=== PATIENT | male | born 1980 | race Two or more races ===

== ENCOUNTER 2016-07-14 09:55 | Emergency (ER) | payer MEDICARE, MEDICAID ==
[~2016-07-14] VITALS: Ht 165.1 cm; Wt 74.8 kg
[2016-07-14 10:27] VITALS: BP 150/100
== END 2016-07-14 10:43 | disposition home or self-care (01) ==
LOC: ER 09:56
DX: M54.5 Low back pain (principal); G89.29 Other chronic pain; J45.909 Unspecified asthma, uncomplicated; F17.210 Nicotine dependence, cigarettes, uncomplicated; F12.10 Cannabis abuse, uncomplicated; W01.0XXA Fall on same level from slipping, tripping and stumbling without subsequent striking against object, initial encounter; Y93.9 Activity, unspecified; Y99.9 Unspecified external cause status; Y92.9 Unspecified place or not applicable; Z88.8 Allergy status to other drugs, medicaments and biological substances; Z76.0 Encounter for issue of repeat prescription

== ENCOUNTER 2016-08-08 12:00 | Emergency (ER) | payer MEDICARE, MEDICAID ==
[~2016-08-08] VITALS: Ht 165.1 cm; Wt 68.7 kg
[2016-08-08 12:30] VITALS: BP 138/93
== END 2016-08-08 14:15 | disposition left against medical advice (07) ==
LOC: ER 12:02
DX: R25.2 Cramp and spasm (principal); Z53.21 Procedure and treatment not carried out due to patient leaving prior to being seen by health care provider

== ENCOUNTER 2016-08-11 12:00 | Emergency (ER) | payer MEDICARE, MEDICAID ==
[~2016-08-11] VITALS: Ht 165.1 cm; Wt 68.5 kg
[2016-08-11 13:05] VITALS: BP 150/94
== END 2016-08-11 13:10 | disposition home or self-care (01) ==
LOC: ER 12:01
DX: G89.29 Other chronic pain (principal); M54.5 Low back pain; M62.838 Other muscle spasm; F17.210 Nicotine dependence, cigarettes, uncomplicated; F12.10 Cannabis abuse, uncomplicated; J45.909 Unspecified asthma, uncomplicated; Z88.8 Allergy status to other drugs, medicaments and biological substances

== ENCOUNTER 2016-09-04 13:06 | Emergency (ER) | payer MEDICARE, MEDICAID ==
[~2016-09-04] VITALS: Ht 165.1 cm; Wt 68.0 kg
[2016-09-04 13:06] VITALS: BP 151/95
== END 2016-09-04 15:15 | disposition left against medical advice (07) ==
LOC: ER 13:08
DX: R53.1 Weakness (principal); Z53.21 Procedure and treatment not carried out due to patient leaving prior to being seen by health care provider
CPT/HCPCS: 93005

== ENCOUNTER 2016-09-25 13:28 | Emergency (ER) | payer MEDICARE, MEDICAID ==
[~2016-09-25] VITALS: Ht 165.1 cm; Wt 70.3 kg
[2016-09-25 14:25] VITALS: BP 141/77
== END 2016-09-25 14:47 | disposition home or self-care (01) ==
LOC: ER 13:28
DX: G47.62 Sleep related leg cramps (principal); G89.4 Chronic pain syndrome; R51 Headache; J45.909 Unspecified asthma, uncomplicated; Z88.8 Allergy status to other drugs, medicaments and biological substances; F12.10 Cannabis abuse, uncomplicated; F17.210 Nicotine dependence, cigarettes, uncomplicated

== ENCOUNTER 2016-10-29 12:13 | Emergency (ER) | payer MEDICARE, MEDICAID ==
[~2016-10-29] VITALS: Ht 165.1 cm; Wt 52.2 kg
[2016-10-29 12:32] VITALS: BP 121/73
== END 2016-10-29 13:09 | disposition home or self-care (01) ==
LOC: ER 12:15
DX: Z76.0 Encounter for issue of repeat prescription (principal); G89.4 Chronic pain syndrome; J45.909 Unspecified asthma, uncomplicated; M62.838 Other muscle spasm; F17.210 Nicotine dependence, cigarettes, uncomplicated; F12.10 Cannabis abuse, uncomplicated; Z88.8 Allergy status to other drugs, medicaments and biological substances

== ENCOUNTER 2016-12-25 13:50 | Emergency (ER) | payer MEDICARE, MEDICAID ==
[~2016-12-25] VITALS: Ht 165.1 cm; Wt 68.0 kg
[2016-12-25 15:17] VITALS: BP 123/77
== END 2016-12-25 15:35 | disposition home or self-care (01) ==
LOC: ER 13:50
DX: G89.29 Other chronic pain (principal); M54.5 Low back pain; Z76.0 Encounter for issue of repeat prescription; J45.909 Unspecified asthma, uncomplicated; F17.210 Nicotine dependence, cigarettes, uncomplicated; F12.10 Cannabis abuse, uncomplicated; Z88.6 Allergy status to analgesic agent

== ENCOUNTER 2017-01-11 16:12 | Emergency (ER) | payer MEDICARE, MEDICAID ==
[~2017-01-11] VITALS: Ht 165.1 cm; Wt 68.0 kg
[2017-01-11 16:22] VITALS: BP 146/93
== END 2017-01-11 18:36 | disposition home or self-care (01) ==
LOC: ER 16:14
DX: M79.604 Pain in right leg (principal); Z76.0 Encounter for issue of repeat prescription; J45.909 Unspecified asthma, uncomplicated; F17.210 Nicotine dependence, cigarettes, uncomplicated; F12.10 Cannabis abuse, uncomplicated; Z88.8 Allergy status to other drugs, medicaments and biological substances

== ENCOUNTER 2017-03-03 13:47 | Emergency (ER) | payer MEDICARE, MEDICAID ==
[~2017-03-03] VITALS: Ht 165.1 cm; Wt 70.3 kg
[2017-03-03 13:59] VITALS: BP 124/85
== END 2017-03-03 20:27 | disposition left against medical advice (07) ==
LOC: ER 13:49
DX: R25.2 Cramp and spasm (principal); Z76.0 Encounter for issue of repeat prescription; Z53.21 Procedure and treatment not carried out due to patient leaving prior to being seen by health care provider

== ENCOUNTER 2017-03-05 14:10 | Emergency (ER) | payer MEDICARE, MEDICAID ==
[~2017-03-05] VITALS: Ht 165.1 cm; Wt 70.3 kg
[2017-03-05 15:04] VITALS: BP 131/96
== END 2017-03-05 15:33 | disposition home or self-care (01) ==
LOC: ER 14:14
DX: M79.604 Pain in right leg (principal); J45.909 Unspecified asthma, uncomplicated; F17.210 Nicotine dependence, cigarettes, uncomplicated; Z88.8 Allergy status to other drugs, medicaments and biological substances; Z90.49 Acquired absence of other specified parts of digestive tract

== ENCOUNTER 2017-04-07 13:13 | Emergency (ER) | payer MEDICARE, MEDICAID ==
[~2017-04-07] VITALS: Ht 165.1 cm; Wt 70.3 kg
[2017-04-07 15:18] VITALS: BP 133/82
== END 2017-04-07 15:27 | disposition home or self-care (01) ==
LOC: ER 13:13
DX: G89.4 Chronic pain syndrome (principal); F17.210 Nicotine dependence, cigarettes, uncomplicated; F12.10 Cannabis abuse, uncomplicated; J45.909 Unspecified asthma, uncomplicated; Z76.0 Encounter for issue of repeat prescription; Z90.49 Acquired absence of other specified parts of digestive tract; Z88.8 Allergy status to other drugs, medicaments and biological substances

== ENCOUNTER 2017-05-01 15:41 | Emergency (ER) | payer MEDICARE, MEDICAID ==
[~2017-05-01] VITALS: Ht 165.1 cm; Wt 70.8 kg
[2017-05-01 16:27] VITALS: BP 132/81
== END 2017-05-01 17:00 | disposition home or self-care (01) ==
LOC: ER 15:55
DX: G89.29 Other chronic pain (principal); M54.5 Low back pain; J45.909 Unspecified asthma, uncomplicated; F17.210 Nicotine dependence, cigarettes, uncomplicated; Z88.8 Allergy status to other drugs, medicaments and biological substances; Z76.0 Encounter for issue of repeat prescription; Z90.49 Acquired absence of other specified parts of digestive tract

== ENCOUNTER 2017-05-17 13:52 | Emergency (ER) | payer MEDICARE, MEDICAID ==
[~2017-05-17] VITALS: Ht 165.1 cm; Wt 68.0 kg
[2017-05-17 14:19] VITALS: BP 140/80
== END 2017-05-17 15:39 | disposition left against medical advice (07) ==
LOC: ER 13:58
DX: G89.29 Other chronic pain (principal); M54.5 Low back pain; J45.909 Unspecified asthma, uncomplicated; F17.210 Nicotine dependence, cigarettes, uncomplicated; Z88.8 Allergy status to other drugs, medicaments and biological substances; Z90.49 Acquired absence of other specified parts of digestive tract

== ENCOUNTER 2017-06-29 10:54 | Emergency (ER) | payer MEDICARE, MEDICAID | END 2017-06-29 11:30 | disposition left against medical advice (07) | LOC: ER 10:54 | DX: R51 Headache (principal); Z76.0 Encounter for issue of repeat prescription; Z53.21 Procedure and treatment not carried out due to patient leaving prior to being seen by health care provider ==

== ENCOUNTER 2017-07-03 15:41 | Emergency (ER) | payer MEDICARE, MEDICAID ==
[~2017-07-03] VITALS: Ht 165.1 cm; Wt 73.0 kg
[2017-07-03 15:45] VITALS: BP 137/91
== END 2017-07-03 20:06 | disposition left against medical advice (07) ==
LOC: ER 15:43
DX: M79.604 Pain in right leg (principal); Z53.21 Procedure and treatment not carried out due to patient leaving prior to being seen by health care provider

== ENCOUNTER 2017-07-09 14:09 | Emergency (ER) | payer MEDICARE, MEDICAID | END 2017-07-09 14:46 | disposition left against medical advice (07) | LOC: ER 14:09 | DX: Z76.0 Encounter for issue of repeat prescription (principal); Z53.21 Procedure and treatment not carried out due to patient leaving prior to being seen by health care provider ==

== ENCOUNTER 2017-12-21 13:32 | Inpatient (IN) | payer MEDICARE, MEDICAID ==
[~2017-12-21] VITALS: Ht 165.1 cm; Wt 80.1 kg
[2017-12-21 14:06] LABS: Urine Bacteria NONE SEEN /hpf (None Seen); Urine Blood Negative /uL (Negative); Urine Mucus FEW (None Seen); Urine Specific Gravity 1.019 (1.001-1.035); Urine WBC 1 /hpf (0 - 3)
[2017-12-21 14:22] LABS: Basophils # (auto) 0 uL; Basophils % (auto) 0.4 % (0.0-2.0); Eosinophils # (auto) 0.1 uL; Neutrophils # (auto) 8.3 uL; Nucleated Red Blood Cells % 0.7 %; Red Blood Cells 1.87 10^6/uL (4.5-5.90)
[2017-12-21 14:23] LABS: Lymphocytes # (auto) 1.6 uL; Lymphocytes % (auto) 15.2 % (10.0-50.0); Mean Corpuscular Hemoglobin 29.5 pg (28.0-32.0); Mean Corpuscular Hgb Conc. 34.5 g/dL (32.0-36.0); Mean Corpuscular Volume 85.5 fL (80.0-100.0); Monocytes # (auto) 0.4 uL; Monocytes % (auto) 3.5 % (0.0-12.0); Neutrophils % (auto) 79.9 % (37.0-80.0); Platelet Count (auto) 252 10^3/uL (140-450); Red Cell Distribution Width 13.5 % (11.8-14.3); White Blood Cell 10.3 10^3/uL (4.4-10.8)
[2017-12-21 14:28] LABS: Hemoglobin 5.5 g/dL (13.5-17.5)
[2017-12-21 14:44] LABS: BUN/Creatinine Ratio 24.5; Bilirubin, Total 0.4 mg/dL (0.2-1.0); Calcium 7.7 mg/dL (8.5-10.1); Potassium 3.5 mmol/L (3.5-5.1); Total Protein 5.4 g/dL (6.4-8.2)
[2017-12-21] MEDS ORDERED: SODIUM CHLORIDE 0.9% 1,000 ML IV ONE ×2 (14:45→15:51)
[2017-12-21 16:47] LABS: INR 0.97 (0.9-1.15); Partial Thromboplastin Time 24.5 sec (23.78-33.04); Prothrombin Time 10.4 sec (9.27-12.13)
[2017-12-21] MEDS ORDERED: ACETAMINOPHEN 325 MG TAB PO ONE (17:00)
[2017-12-21] MEDS ORDERED: MORPHINE SULF INJ 2 MG/ML SYRINGE 1ML IV PRN ×2 (17:15)
[2017-12-21] MEDS ORDERED: PROMETHAZINE HCL 25 MG/ML 1ML IV PRN (17:15)
[2017-12-21] MEDS ORDERED: NITROGLYCERIN 0.4 MG SL TAB SL PRN (17:15)
[2017-12-21] MEDS ORDERED: PANTOPRAZOLE 40 MG/10 ML VIAL IV ONE (17:15)
[2017-12-21] MEDS: SODIUM CHLORIDE 0.9% 1,000 ML IV SCH (17:24)
[2017-12-21] MEDS ORDERED: ACETAMINOPHEN 500 MG TAB PO ONE (17:27)
[2017-12-21] MEDS: CEFOTETAN 1GM/D5W 50ML BAG 50 ML IV SCH (17:56)
[2017-12-21 19:31] LABS: Hematocrit 13.8 % (41.0-53.0)
[2017-12-21 19:43] LABS: Hemoglobin 4.8 g/dL (13.5-17.5)
[2017-12-21 19:49] VITALS: BP 114/56
[2017-12-21] MEDS: PROMETHAZINE HCL 25 MG/ML 1ML IV PRN (20:31)
[2017-12-21 20:53] VITALS: BP 130/66
[2017-12-21] MEDS: MORPHINE SULF INJ 2 MG/ML SYRINGE 1ML IV PRN (20:57)
[2017-12-21 21:16] VITALS: BP 137/69
[2017-12-21] MEDS: LORazepam 2MG/ML-1ML VIAL IV PRN (21:26)
[2017-12-21 21:45] VITALS: BP 125/73
[2017-12-21] MEDS: PANTOPRAZOLE 40 MG/10 ML VIAL IV SCH (22:07)
[2017-12-21 23:20] VITALS: BP 116/64
[2017-12-21 23:35] VITALS: BP 117/63
[2017-12-22] VITALS (8 sets, daily range): BP systolic 92–115; BP diastolic 53–70
[2017-12-22] MEDS: SODIUM CHLORIDE 0.9% 1,000 ML IV SCH ×2 (01:23→09:04)
[2017-12-22 01:51] LABS: Hematocrit 22.8 % (41.0-53.0); Hemoglobin 7.8 g/dL (13.5-17.5)
[2017-12-22] MEDS: MORPHINE SULF INJ 2 MG/ML SYRINGE 1ML IV PRN ×2 (05:59→21:00)
[2017-12-22] MEDS: PROMETHAZINE HCL 25 MG/ML 1ML IV PRN ×3 (05:59→20:28)
[2017-12-22 06:42] LABS: Hematocrit 27.2 % (41.0-53.0); Hemoglobin 9.5 g/dL (13.5-17.5)
[2017-12-22] MEDS: CEFOTETAN 1GM/D5W 50ML BAG 50 ML IV SCH ×2 (07:51→18:25)
[2017-12-22] MEDS: PANTOPRAZOLE 40 MG/10 ML VIAL IV SCH ×2 (10:26→20:28)
[2017-12-22] MEDS ORDERED: MORPHINE SULFATE 4 MG/ML SYR/VIAL ONE ×2 (11:03→15:28)
[2017-12-22] MEDS ORDERED: LIDOCAINE VISCOUS 2% 15ML UD ONE (12:37)
[2017-12-22] MEDS ORDERED: diphenhdrAMINE HCL 50 MG/1 ML VL ONE (12:37)
[2017-12-22] MEDS ORDERED: SODIUM CHLORIDE LOCK 10 ML ONE (12:37)
[2017-12-22] MEDS: fentaNYL CITRATE 100 MCG/2 ML VL ONE ×2 (13:25→13:28)
[2017-12-22] MEDS: MIDAZOLAM HCL 5 MG/ML-1ML VIAL ONE ×3 (13:25→13:31)
[2017-12-22 14:47] LABS: Mean Corpuscular Hemoglobin 30.6 pg (28.0-32.0); White Blood Cell 7.9 10^3/uL (4.4-10.8)
[2017-12-22 14:48] LABS: Hematocrit 21.9 % (41.0-53.0); Hemoglobin 7.7 g/dL (13.5-17.5); Mean Corpuscular Hgb Conc. 35.3 g/dL (32.0-36.0); Mean Corpuscular Volume 86.7 fL (80.0-100.0); Platelet Count (auto) 204 10^3/uL (140-450); Red Blood Cells 2.53 10^6/uL (4.5-5.90); Red Cell Distribution Width 14.6 % (11.8-14.3)
[2017-12-22 14:51] LABS: Band Neutrophils % (manual) 0; Basophils % (manual) 0 (0.0-2.0); Blast Cells 0; Myelocytes % 0; Promyelocytes % 0; Reactive Lymphocytes 0
[2017-12-22 15:07] LABS: Calcium 7.4 mg/dL (8.5-10.1); Potassium 3.5 mmol/L (3.5-5.1)
[2017-12-22 15:21] LABS: Eosinophils % (manual) 1 (0-7); Lymphocytes % (manual) 19 (10.0-50.0); Metamyelocytes % 1; Monocytes % (manual) 3 (0-12)
[2017-12-22] MEDS: LIDOCAINE 5% TOPICAL PATCH TOP SCH (18:14)
[2017-12-22 18:24] LABS: Hemoglobin 8.8 g/dL (13.5-17.5); Mean Corpuscular Hemoglobin 29.7 pg (28.0-32.0); Mean Corpuscular Hgb Conc. 33.8 g/dL (32.0-36.0); Mean Corpuscular Volume 87.7 fL (80.0-100.0); Platelet Count (auto) 251 10^3/uL (140-450); Red Blood Cells 2.96 10^6/uL (4.5-5.90); Red Cell Distribution Width 14.7 % (11.8-14.3); White Blood Cell 9.6 10^3/uL (4.4-10.8)
[2017-12-22 18:25] LABS: Band Neutrophils % (manual) 0; Basophils % (manual) 0 (0.0-2.0); Blast Cells 0; Myelocytes % 0; Promyelocytes % 0; Reactive Lymphocytes 0
[2017-12-22 19:19] LABS: Eosinophils % (manual) 1 (0-7); Lymphocytes % (manual) 26 (10.0-50.0); Metamyelocytes % 1; Monocytes % (manual) 2 (0-12)
[2017-12-22] MEDS: LORazepam 2MG/ML-1ML VIAL IV PRN (21:02)
[2017-12-23] MEDS: MORPHINE SULF INJ 2 MG/ML SYRINGE 1ML IV PRN ×3 (04:38→22:35)
[2017-12-23] MEDS: LORazepam 2MG/ML-1ML VIAL IV PRN (04:39)
[2017-12-23 05:30] VITALS: BP 105/55
[2017-12-23] MEDS: SODIUM CHLORIDE 0.9% 1,000 ML IV SCH ×4 (05:43→17:47)
[2017-12-23] MEDS: CEFOTETAN 1GM/D5W 50ML BAG 50 ML IV SCH (06:18)
[2017-12-23 07:34] VITALS: BP 105/49
[2017-12-23 09:36] LABS: Hematocrit 21.5 % (41.0-53.0); Hemoglobin 7.5 g/dL (13.5-17.5); Mean Corpuscular Hemoglobin 29.9 pg (28.0-32.0); Mean Corpuscular Volume 86.3 fL (80.0-100.0); Platelet Count (auto) 222 10^3/uL (140-450); Red Cell Distribution Width 14.6 % (11.8-14.3); White Blood Cell 7.2 10^3/uL (4.4-10.8)
[2017-12-23 09:38] LABS: Mean Corpuscular Hgb Conc. 34.7 g/dL (32.0-36.0)
[2017-12-23 09:40] LABS: Band Neutrophils % (manual) 0; Basophils % (manual) 0 (0.0-2.0); Blast Cells 0; Metamyelocytes % 0; Myelocytes % 0; Promyelocytes % 0; Reactive Lymphocytes 0
[2017-12-23 10:01] LABS: BUN/Creatinine Ratio 9.8; Calcium 7.8 mg/dL (8.5-10.1); Potassium 3.4 mmol/L (3.5-5.1)
[2017-12-23] MEDS: LIDOCAINE 5% TOPICAL PATCH TOP SCH (10:03)
[2017-12-23] MEDS: PANTOPRAZOLE 40 MG/10 ML VIAL IV SCH ×2 (10:03→22:35)
[2017-12-23 10:27] LABS: Eosinophils % (manual) 1 (0-7); Lymphocytes % (manual) 13 (10.0-50.0); Monocytes % (manual) 5 (0-12)
[2017-12-23] MEDS ORDERED: MORPHINE SULFATE 4 MG/ML SYR/VIAL IV PRN (12:15)
[2017-12-23 12:26] VITALS: BP 117/65
[2017-12-23 16:44] VITALS: BP 99/55
[2017-12-23 22:00] VITALS: BP 149/62
[2017-12-24] MEDS: LORazepam 2MG/ML-1ML VIAL IV PRN (01:09)
[2017-12-24] MEDS: SODIUM CHLORIDE 0.9% 1,000 ML IV SCH (03:32)
[2017-12-24 05:30] VITALS: BP 97/52
[2017-12-24 06:49] LABS: Hematocrit 19.9 % (41.0-53.0); Hemoglobin 7.1 g/dL (13.5-17.5); Mean Corpuscular Hemoglobin 30.8 pg (28.0-32.0); Mean Corpuscular Hgb Conc. 35.5 g/dL (32.0-36.0); Mean Corpuscular Volume 86.8 fL (80.0-100.0); Platelet Count (auto) 241 10^3/uL (140-450); Red Blood Cells 2.29 10^6/uL (4.5-5.90); Red Cell Distribution Width 14.8 % (11.8-14.3); White Blood Cell 5.9 10^3/uL (4.4-10.8)
[2017-12-24 06:51] LABS: Band Neutrophils % (manual) 0; Basophils % (manual) 0 (0.0-2.0); Blast Cells 0; Metamyelocytes % 0; Myelocytes % 0; Promyelocytes % 0; Reactive Lymphocytes 0
[2017-12-24] MEDS: MORPHINE SULF INJ 2 MG/ML SYRINGE 1ML IV PRN (07:51)
[2017-12-24 08:23] LABS: Eosinophils % (manual) 2 (0-7); Lymphocytes % (manual) 22 (10.0-50.0); Monocytes % (manual) 4 (0-12)
[2017-12-24 08:35] VITALS: BP 128/72
[2017-12-24] MEDS: LIDOCAINE 5% TOPICAL PATCH TOP SCH (09:44)
[2017-12-24] MEDS: PANTOPRAZOLE 40 MG/10 ML VIAL IV SCH (09:44)
[2017-12-24 12:40] VITALS: BP 136/70
== END 2017-12-24 12:35 | disposition home or self-care (01) | DRG 378 ==
LOC: ER 13:32 → OVERFLOW 13:33 → EAST 12-22 16:52
PROVIDERS: ADMIT Internal Medicine; ATTEND Family Medicine
PROC: 30233N1 Transfusion of Nonautologous Red Blood Cells into Peripheral Vein, Percutaneous Approach (ICD-10-PCS; principal; 2017-12-21)
PROC: 0W3P8ZZ Control Bleeding in Gastrointestinal Tract, Via Natural or Artificial Opening Endoscopic (ICD-10-PCS; 2017-12-22)
DX: K26.4 Chronic or unspecified duodenal ulcer with hemorrhage (principal); D62 Acute posthemorrhagic anemia; E44.0 Moderate protein-calorie malnutrition; D64.9 Anemia, unspecified; J45.909 Unspecified asthma, uncomplicated; F17.210 Nicotine dependence, cigarettes, uncomplicated; G89.4 Chronic pain syndrome; K59.01 Slow transit constipation; Z82.5 Family history of asthma and other chronic lower respiratory diseases; Z68.29 Body mass index [BMI] 29.0-29.9, adult; Z88.8 Allergy status to other drugs, medicaments and biological substances
CPT/HCPCS: 36415; 36430; 71046; 71250; 74176; 80048; 80053; 81001; 82270; 83690; 83735; 84443; 85007; 85014; 85018; 85025; 85027; 85045; 85610; 85730; 86850; 86900; 86901; 86920; 93005; 96361; 96374; 96375; 96376; C9113; G0378; J2250

== ENCOUNTER 2018-01-25 16:24 | Emergency (ER) | payer MEDICARE, MEDICAID ==
[~2018-01-25] VITALS: Ht 165.1 cm; Wt 74.8 kg
[2018-01-25 16:35] VITALS: BP 106/68
[2018-01-25 17:42] LABS: Urine Bacteria NONE SEEN /hpf (None Seen); Urine Blood Negative /uL (Negative); Urine Mucus FEW (None Seen); Urine Specific Gravity 1.018 (1.001-1.035); Urine WBC 17 /hpf (0 - 3)
== END 2018-01-25 20:57 | disposition home or self-care (01) ==
LOC: ER 16:24
DX: N39.0 Urinary tract infection, site not specified (principal); J45.909 Unspecified asthma, uncomplicated; F17.210 Nicotine dependence, cigarettes, uncomplicated
CPT/HCPCS: 81001

== ENCOUNTER 2018-05-10 17:30 | Emergency (ER) | payer MEDICARE, MEDICAID ==
[~2018-05-10] VITALS: Ht 165.1 cm; Wt 68.0 kg
[2018-05-10 17:40] VITALS: BP 135/89
== END 2018-05-10 21:22 | disposition home or self-care (01) ==
LOC: ER 17:30
DX: S39.012A Strain of muscle, fascia and tendon of lower back, initial encounter (principal); F17.210 Nicotine dependence, cigarettes, uncomplicated; F12.10 Cannabis abuse, uncomplicated; J45.909 Unspecified asthma, uncomplicated; Z88.8 Allergy status to other drugs, medicaments and biological substances; V49.69XA Unspecified car occupant injured in collision with other motor vehicles in traffic accident, initial encounter; Y93.89 Activity, other specified; Y99.8 Other external cause status; Y92.89 Other specified places as the place of occurrence of the external cause
CPT/HCPCS: 72080

== ENCOUNTER 2018-10-19 12:35 | Emergency (ER) | payer MEDICARE, MEDICAID ==
[~2018-10-19] VITALS: Ht 165.1 cm; Wt 68.0 kg
[2018-10-19 13:46] VITALS: BP 143/84
[2018-10-19] MEDS ORDERED: KETOROLAC TROMETH 60MG/2ML VIAL IM ONE (14:15)
== END 2018-10-19 14:24 | disposition home or self-care (01) ==
LOC: ER 12:44
DX: S66.911A Strain of unspecified muscle, fascia and tendon at wrist and hand level, right hand, initial encounter (principal); J45.909 Unspecified asthma, uncomplicated; F17.210 Nicotine dependence, cigarettes, uncomplicated; F12.90 Cannabis use, unspecified, uncomplicated; Z88.8 Allergy status to other drugs, medicaments and biological substances; X58.XXXA Exposure to other specified factors, initial encounter; Y93.89 Activity, other specified; Y99.8 Other external cause status; Y92.89 Other specified places as the place of occurrence of the external cause
CPT/HCPCS: 73110; 96372; 99283; J1885

== ENCOUNTER 2019-01-31 17:52 | Emergency (ER) | payer MEDICARE, MEDICAID ==
[~2019-01-31] VITALS: Ht 165.1 cm; Wt 72.6 kg
[2019-01-31 18:15] VITALS: BP 121/83
== END 2019-01-31 23:58 | disposition left against medical advice (07) ==
LOC: ER 17:52
DX: M54.5 Low back pain (principal); Z53.21 Procedure and treatment not carried out due to patient leaving prior to being seen by health care provider

== ENCOUNTER 2020-05-17 14:11 | Emergency (ER) | payer MEDICARE, MEDICAID ==
[~2020-05-17] VITALS: Ht 165.1 cm; Wt 68.0 kg
[2020-05-17 14:29] VITALS: BP 134/92
== END 2020-05-17 21:33 | disposition left against medical advice (07) ==
LOC: ER 14:11
DX: R11.2 Nausea with vomiting, unspecified (principal); R19.7 Diarrhea, unspecified; Z53.21 Procedure and treatment not carried out due to patient leaving prior to being seen by health care provider

== ENCOUNTER 2023-07-10 15:29 | Inpatient (IN) | payer BC, MEDICAID ==
[~2023-07-10] VITALS: Ht 165.1 cm; Wt 83.0 kg
[2023-07-10] MEDS ORDERED: PANTOPRAZOLE 40 MG/10 ML VIAL INJ IV ONE (15:45)
[2023-07-10 16:17] LABS: Hematocrit 41.9 % (41.0-53.0); Hemoglobin 14.2 g/dL (13.5-17.5); Mean Corpuscular Hemoglobin 27.8 pg (28.0-32.0); Mean Corpuscular Hgb Conc. 33.9 g/dL (32.0-36.0); Mean Corpuscular Volume 82.1 fL (80.0-100.0); Red Cell Distribution Width 13.7 % (11.8-14.3); White Blood Cell 14.8 10^3/uL (4.4-10.8)
[2023-07-10 16:34] LABS: Alanine Aminotransferase 109 U/L (7-40); Albumin 4.5 g/dL (3.2-4.8); Alkaline Phosphatase 113 U/L (46-116); Anion Gap 8 (5-15); Aspartate Aminotransferase 41 U/L (13-40); BUN/Creatinine Ratio 16.5 (10.0-20.0); Basophils % (manual) 0 (0.0-2.0); Blast Cells 0; Blood Urea Nitrogen 19 mg/dL (9-23); Carbon Dioxide 27 mmol/L (20-30); Chloride 98 mmol/L (98-107); Glucose 117 mg/dL (74-106); Metamyelocytes % 0; Myelocytes % 0; Potassium 3.3 mmol/L (3.5-5.1); Promyelocytes % 0; Reactive Lymphocytes 0; Sodium 133 mmol/L (136-145); Total Protein 6.4 g/dL (5.7-8.2)
[2023-07-10] MEDS ORDERED: SODIUM CHLORIDE 0.9% 1,000 ML IV ONE (16:45)
[2023-07-10 16:55] LABS: INR 1.04 (0.9-1.15); Partial Thromboplastin Time 28.7 SEC (24.5-34.5); Prothrombin Time 10.9 sec (9.3-11.8)
[2023-07-10] MEDS ORDERED: OCTREOTIDE ACETATE 100 MCG in SODIUM CHL 0.9% 50 ML IV ONE (17:00)
[2023-07-10 17:57] LABS: Basophils # (auto) 0.1 10 ^3/uL (0-0.2); Basophils % (auto) 0.5 % (0.0-2.0); Eosinophils # (auto) 0.1 10 ^3/uL (0-0.8); Eosinophils % (auto) 0.8 % (0.0-7.0); Hematocrit 40.8 % (41.0-53.0); Hemoglobin 13.8 g/dL (13.5-17.5); Lymphocytes # (auto) 3.9 10 ^3/uL (0.4-5.4); Lymphocytes % (auto) 31.3 % (10.0-50.0); Mean Corpuscular Hemoglobin 28.2 pg (28.0-32.0); Mean Corpuscular Hgb Conc. 33.8 g/dL (32.0-36.0); Mean Corpuscular Volume 83.2 fL (80.0-100.0); Monocytes # (auto) 0.7 10 ^3/uL (0-1.3); Monocytes % (auto) 6.1 % (0.0-12.0); Neutrophils # (auto) 7.5 10 ^3/uL (1.6-8.6); Neutrophils % (auto) 61.3 % (37.0-80.0); Nucleated Red Blood Cells % 0.1 %; Red Cell Distribution Width 13.3 % (11.8-14.3); White Blood Cell 12.3 10^3/uL (4.4-10.8)
[2023-07-10 18:19] LABS: Lipase 50 U/L (12-53)
[2023-07-10 18:20] LABS: Magnesium 2.3 mg/dL (1.6-2.6)
[2023-07-10 18:43] LABS: Band Neutrophils % (manual) 2; Eosinophils % (manual) 1 (0-7); Lymphocytes % (manual) 28 (10.0-50.0); Monocytes % (manual) 10 (0-12); Platelet Estimate Adequate; RBC Morphology Normal
[2023-07-10] MEDS ORDERED: ACETAMINOPHEN 325 MG TAB PO PRN (19:00)
[2023-07-10] MEDS ORDERED: ONDANSETRON HCL 4 MG/2 ML VIAL IV PRN (19:00)
[2023-07-10] MEDS ORDERED: HYDROcodone-ACET 5/325MG TAB PO PRN (19:00)
[2023-07-10] MEDS ORDERED: POTASSIUM CHL 20 Meq TABLET PO ONE (19:45)
[2023-07-10 23:20] LABS: Hematocrit 38.2 % (41.0-53.0); Mean Corpuscular Hemoglobin 28.2 pg (28.0-32.0); Mean Corpuscular Hgb Conc. 34.2 g/dL (32.0-36.0); Mean Corpuscular Volume 82.5 fL (80.0-100.0); Red Blood Cells 4.62 10^6/uL (4.5-5.90); Red Cell Distribution Width 13.4 % (11.8-14.3); White Blood Cell 11.4 10^3/uL (4.4-10.8)
[2023-07-10] MEDS: PANTOPRAZOLE 40 MG/10 ML VIAL INJ IV SCH (23:20)
[2023-07-10 23:21] LABS: Basophils % (manual) 0 (0.0-2.0); Blast Cells 0; Metamyelocytes % 0; Myelocytes % 0; Promyelocytes % 0; Reactive Lymphocytes 0
[2023-07-11] VITALS (7 sets, daily range): BP systolic 129–132; BP diastolic 73–91; PULSE 79–95; RESP 16–20; TEMP 97.6–98.1; O2SAT 97–99
[2023-07-11 01:42] LABS: Band Neutrophils % (manual) 2; Eosinophils % (manual) 3 (0-7); Lymphocytes % (manual) 40 (10.0-50.0); Monocytes % (manual) 1 (0-12)
[2023-07-11 01:43] LABS: Platelet Estimate Adequate
[2023-07-11 06:57] LABS: Hematocrit 38.4 % (41.0-53.0); Hemoglobin 13.1 g/dL (13.5-17.5); Mean Corpuscular Hemoglobin 28.1 pg (28.0-32.0); Mean Corpuscular Hgb Conc. 34.2 g/dL (32.0-36.0); Mean Corpuscular Volume 82.3 fL (80.0-100.0); Red Blood Cells 4.66 10^6/uL (4.5-5.90); Red Cell Distribution Width 13.3 % (11.8-14.3); White Blood Cell 13.3 10^3/uL (4.4-10.8)
[2023-07-11 07:11] LABS: Alanine Aminotransferase 85 U/L (7-40); Alkaline Phosphatase 102 U/L (46-116); Anion Gap 8 (5-15); BUN/Creatinine Ratio 11.7 (10.0-20.0); Blood Urea Nitrogen 15 mg/dL (9-23); Calcium 8.6 mg/dL (8.5-10.1); Carbon Dioxide 26 mmol/L (20-30); Chloride 100 mmol/L (98-107); Glucose 113 mg/dL (74-106); Potassium 3.4 mmol/L (3.5-5.1); Sodium 134 mmol/L (136-145)
[2023-07-11 07:12] LABS: Albumin 4.3 g/dL (3.2-4.8); Aspartate Aminotransferase 30 U/L (13-40)
[2023-07-11 07:13] LABS: Bilirubin, Total 0.6 mg/dL (0.2-1.0); Total Protein 6.4 g/dL (5.7-8.2)
[2023-07-11 07:32] LABS: Band Neutrophils % (manual) 0; Basophils % (manual) 0 (0.0-2.0); Metamyelocytes % 0; Reactive Lymphocytes 0
[2023-07-11] MEDS ORDERED: DICYCLOMINE HCL (10MG/ML) 2 ML AMPULE IM ONE (09:15)
[2023-07-11] MEDS: PANTOPRAZOLE 40 MG/10 ML VIAL INJ IV SCH ×2 (09:37→22:29)
[2023-07-11] MEDS ORDERED: ALBU108A5 IN (10:25)
[2023-07-11 14:02] LABS: Blast Cells 4; Eosinophils % (manual) 2 (0-7); Lymphocytes % (manual) 25 (10.0-50.0); Monocytes % (manual) 1 (0-12); Myelocytes % 1; Promyelocytes % 6
[2023-07-11 14:03] LABS: Platelet Estimate Adequate
[2023-07-11 18:33] LABS: Urine Epithelial Cast None Seen /hpf (<5)
[2023-07-11 19:07] LABS: Amphetamine Screen, Urine Neg (NEGATIVE); Barbiturate Scree,Urine Neg (NEGATIVE); Benzodiazephine Screen, Urine Pos (NEGATIVE); Cannabinoid Screen, Urine Neg (NEGATIVE); Cocaine Screen, Urine Neg (NEGATIVE); Opiate Scree,Urine Neg (NEGATIVE); Phencyclidine Screen, Urine Neg (NEGATIVE)
[2023-07-11 19:21] LABS: Urine Bacteria NONE SEEN /hpf (None Seen); Urine Blood Negative /uL (Negative); Urine Clarity Clear (Clear); Urine Color Yellow (Yellow); Urine Protein, UAD TRACE (Negative); Urine Specific Gravity 1.019 (1.001-1.035); Urine Urobilinogen Normal (Negative); Urine WBC 14 /hpf (0 - 3)
[2023-07-11] MEDS: DOCUSATE SOD 100 MG CAP PO PRN (22:29)
[2023-07-12] MEDS ORDERED: POTASSIUM CHL 20 Meq TABLET PO ONE
[2023-07-12 05:00] VITALS: BP 139/81; PULSE 81; RESP 16; TEMP 97.9; O2SAT 99
[2023-07-12 08:00] VITALS: BP 155/89; PULSE 88; RESP 16; TEMP 98.1; O2SAT 93
[2023-07-12] MEDS: PANTOPRAZOLE 40 MG/10 ML VIAL INJ IV SCH ×2 (09:06→22:15)
[2023-07-12] MEDS: DOCUSATE SOD 100 MG CAP PO PRN (09:10)
[2023-07-12 12:00] VITALS: BP 133/89; PULSE 98; RESP 16; TEMP 98.8; O2SAT 96
[2023-07-12 17:00] VITALS: BP 135/77; PULSE 97; RESP 20; TEMP 98.6; O2SAT 96
[2023-07-12] MEDS ORDERED: PERCOT PO (17:17)
[2023-07-12] MEDS: NICOTINE 21MG/24 HR TOPICAL PATCH TD SCH (20:00)
[2023-07-12 20:10] VITALS: PULSE 90; RESP 18; O2SAT 99
[2023-07-12 21:34] VITALS: BP 131/82; PULSE 90; RESP 18; TEMP 98.1; O2SAT 99
[2023-07-13 05:25] VITALS: BP 133/61; PULSE 83; RESP 18; TEMP 98; O2SAT 98
[2023-07-13 06:28] LABS: Basophils # (auto) 0 10 ^3/uL (0-0.2); Basophils % (auto) 0.4 % (0.0-2.0); Eosinophils # (auto) 0.4 10 ^3/uL (0-0.8); Eosinophils % (auto) 3.5 % (0.0-7.0); Hematocrit 28.8 % (41.0-53.0); Hemoglobin 9.8 g/dL (13.5-17.5); Lymphocytes % (auto) 28.6 % (10.0-50.0); Mean Corpuscular Hemoglobin 28.3 pg (28.0-32.0); Mean Corpuscular Hgb Conc. 34.2 g/dL (32.0-36.0); Mean Corpuscular Volume 82.6 fL (80.0-100.0); Monocytes # (auto) 0.7 10 ^3/uL (0-1.3); Monocytes % (auto) 6.9 % (0.0-12.0); Neutrophils # (auto) 6.3 10 ^3/uL (1.6-8.6); Neutrophils % (auto) 60.6 % (37.0-80.0); Nucleated Red Blood Cells % 0.1 %; Red Blood Cells 3.48 10^6/uL (4.5-5.90); Red Cell Distribution Width 13.3 % (11.8-14.3); White Blood Cell 10.3 10^3/uL (4.4-10.8)
[2023-07-13 06:38] LABS: Chloride 104 mmol/L (98-107)
[2023-07-13 06:39] LABS: Potassium 4.1 mmol/L (3.5-5.1); Sodium 138 mmol/L (136-145)
[2023-07-13 06:40] LABS: Anion Gap 5 (5-15); Carbon Dioxide 29 mmol/L (20-30)
[2023-07-13 06:45] LABS: BUN/Creatinine Ratio 12.5 (10.0-20.0); Blood Urea Nitrogen 13 mg/dL (9-23); Glucose 116 mg/dL (74-106)
[2023-07-13 08:00] VITALS: PULSE 84; RESP 16; O2SAT 98
[2023-07-13] MEDS: PANTOPRAZOLE 40 MG/10 ML VIAL INJ IV SCH (08:41)
[2023-07-13] MEDS: DOCUSATE SOD 100 MG CAP PO PRN (08:41)
[2023-07-13] MEDS: NICOTINE 21MG/24 HR TOPICAL PATCH TD SCH (08:41)
[2023-07-13 09:00] VITALS: BP 108/62; PULSE 84; RESP 16; TEMP 98.2; O2SAT 98
[2023-07-13 13:00] VITALS: BP 99/73; PULSE 87; RESP 14; TEMP 97.8; O2SAT 99
[2023-07-13 15:23] VITALS: BP 110/80; PULSE 88; RESP 15; TEMP 97.8; O2SAT 100
[2023-07-14 09:12] LABS: Hepatitis B Surface Antigen Negative (Negative)
[2023-07-14 09:33] LABS: Hepatitis C Antibody Negative (Negative)
== END 2023-07-13 17:30 | disposition home or self-care (01) | DRG 379 ==
LOC: ER 15:29 → OVERFLOW 19:30 → EAST 19:30
PROVIDERS: ADMIT Nurse Practitioner Family; ATTEND Internal Medicine
DX: K27.0 Acute peptic ulcer, site unspecified, with hemorrhage (principal); F17.210 Nicotine dependence, cigarettes, uncomplicated; J45.909 Unspecified asthma, uncomplicated; F11.10 Opioid abuse, uncomplicated; Z87.11 Personal history of peptic ulcer disease
CPT/HCPCS: 36415; 74176; 80048; 80053; 80307; 81001; 82270; 83605; 83690; 83735; 84484; 85007; 85025; 85027; 85610; 85730; 86803; 86850; 86900; 86901; 87340; 99291; C9113; G0378